=== PATIENT | female | born 1990 | race Hispanic/Latino ===

== ENCOUNTER 2023-06-24 02:12 | Emergency (ER) | payer MEDICAID, SELFPAY ==
[2023-06-24 03:42] LABS: BHCG - Serum Negative (NEGATIVE); Pregs Control Background? CLEAR/WHITE (CLR/WHITE); Pregs Control Bar Appear? YES (CONTROL BAR)
[2023-06-24 03:48] LABS: ALT (SGPT) 40 U/L (8-55); AST (SGOT) 25 U/L (5-34); Acetaminophen Less than 10 mcg/mL (10.0-30.0); Albumin 4.2 g/dL (3.5-5.0); Alcohol Less than 10.0 mg/dL (Less than 10); Alkaline Phosphatase 90 U/L (40-110); Anion Gap 14 mmol/L (10-20); BUN (Urea Nitrogen) 7 mg/dL (7.0-18.7); Bilirubin, Total 1.4 mg/dL (0.2-1.2); Calc. Creatinine Clearance 0 mL/min (70-130); Calcium 9.3 mg/dL (7.8-10.44); Carbon Dioxide 20 mmol/L (22-29); Chloride 106 mmol/L (98-107); Estimated GFR 122; Globulin 3.5 g/dL (2.4-3.5); Glucose 104 mg/dL (70-105); Potassium 3.4 mmol/L (3.5-5.1); Protein, Total 7.7 g/dL (6.0-8.3); Salicylate Less than 8.0 mg/dL (15.0-30.0); Sodium 137 mmol/L (136-145)
[2023-06-24 03:54] LABS: Troponin I Less than 0.010 ng/mL (< 0.028)
[2023-06-24 04:00] LABS: Hematocrit 37.8 % (34.9-44.5); Hemoglobin 13.7 g/dL (12.0-15.5); Mean Corpuscular HGB CONC 36.2 g/dL (32.0-36.0); Mean Corpuscular Hemoglobin 30.9 pg (27.0-33.0); Mean Corpuscular Volume 85.1 fl (81.6-98.3); Mean Platelet Volume 10.8 fl (7.4-10.4); Platelet Count 304 10x3/uL (150-450); RBC Distribution Width 12.9 % (11.5-14.5); Red Blood Cell (RBC) Count 4.44 10x6/uL (3.90-5.03); White Blood Cell (WBC) Count 7.4 10x3/uL (3.5-10.5)
[2023-06-24 04:08] LABS: Eosinophils 2 % (0-10); Lymphocytes 17 % (21-51); Monocytes 5 % (0-10); Reactive Lymphocytes 6 % (0-10)
[2023-06-24 04:09] LABS: Platelet Adequacy Comment Appears Adequate
[2023-06-24 04:10] LABS: MDiff Complete? YES
[2023-06-24] MEDS ORDERED: Haloperidol Lactate 5 MG/ML VIAL ONE (04:35)
[2023-06-24 05:15] LABS: Amphetamine Detected (NotDetected); Barbiturates Screen Not Detected (NotDetected); Benzodiazepine Screen Not Detected (NotDetected); Cocaine Metabolite Screen Not Detected (NotDetected); Methadone Not Detected (NotDetected); Methamphetamine Detected (NotDetected); Opiate Screen Not Detected (NotDetected); Oxycodone Screen Not Detected (NotDetected); Phencyclidine (PCP) Not Detected (NotDetected); THC/Cannabinoid Screen Not Detected (NotDetected); Tricyclic Screen Not Detected (NotDetected)
== END 2023-06-24 09:18 | disposition home or self-care (01) ==
LOC: CSHERS 02:12
DX: F15.10 Other stimulant abuse, uncomplicated (principal); F29 Unspecified psychosis not due to a substance or known physiological condition; F17.290 Nicotine dependence, other tobacco product, uncomplicated
CPT/HCPCS: 36415; 71045; 80053; 80306; 80307; 83735; 84484; 84703; 85025; 93005; 96374; J1630